=== PATIENT | female | born 1940 | race Caucasian/White ===

== ENCOUNTER → 2019-10-17 15:25 | Outpatient (BNVA) | payer MEDICARE, BC, SELFPAY | PROVIDERS: Family Provider Family Medicine; Visit Provider Obstetrics & Gynecology | DX: R33.9 Retention of urine, unspecified (principal) | CPT/HCPCS: 80053; 81000; 87077; 87086; 87186 ==

== ENCOUNTER 2020-05-29 14:21 | Outpatient (CLI) | payer MEDICARE, BC, SELFPAY ==
--- NOTE | 2020-05-29 14:30 | MM_ITS ---
WS: [id number] BILATERAL SCREENING DIGITAL MAMMOGRAM WITH CAD HISTORY: SCREENING COMPARISON: 03/27/2019 and 03/22/2018 Bilateral CC and MLO views submitted. Computer aided detection analyzed. Breast composition: There are scattered areas of fibroglandular density. No suspicious masses, microc alcifications or architectural distortion. MM/[place] [id number] IMPRESSION: BI-RADS: 1-Negative FOLLOW UP: 1 Year Follow-up
== END 2020-05-29 14:22 | disposition home or self-care (01) ==
LOC: RADSHAW 14:28
PROVIDERS: PCP Family Medicine; Visit Provider Family Medicine
DX: Z12.31 Encounter for screening mammogram for malignant neoplasm of breast (principal)
CPT/HCPCS: 77067

== ENCOUNTER 2020-10-07 14:13 | Outpatient (CLI) | payer MEDICARE, BC, SELFPAY ==
--- NOTE | 2020-10-07 14:29 | XR_ITS ---
WS: [id number] DEXA (DUAL ENERGY X-RAY ABSORPTIOMETRY) Bone mineral density was performed using a [employer] machine. HISTORY: ASYMPTOMATIC MENOPAUSAL STATE COMPARISON: None available. Lumbar spine BMD (L1-L4): 0.985 g/cm2 T score: -1.6 Z score: 0.4 Total hip BMD: Left: 0.682 g/cm2. T score: -2.6 Z score: -0.4 Right: 0.662 g/cm2. T score: -2.7 Z score: -0.6 10 year probability of a major osteoporotic fracture is 68% XR/XR DEXA axial skeleton* [id number] IMPRESSION: OSTEOPOROSIS based upon the WHO classification for females.
== END 2020-10-07 14:14 | disposition home or self-care (01) ==
PROVIDERS: PCP Family Medicine; Visit Provider Family Medicine
DX: Z78.0 Asymptomatic menopausal state (principal); M81.0 Age-related osteoporosis without current pathological fracture
CPT/HCPCS: 77080

== ENCOUNTER 2021-09-02 13:01 | Outpatient (CLI) | payer MEDICARE, BC, SELFPAY ==
--- NOTE | 2021-09-02 13:22 | MM_ITS ---
WS: [id number] BILATERAL 3D TOMOSYNTHESIS DIGITAL SCREENING MAMMOGRAPHY WITH CAD CLINICAL INFORMATION: SCREENING HISTORY: Screening mammogram. No current complaints. COMPARISON: May 29, 2020 TECHNIQUE: Bilateral CC and MLO views. FINDINGS: Scattered fibroglandular densities bilaterally. Vascular calcification. A few incidental punctate landon cifications. No suspicious focal mass, asymmetry, calcifications, or architectural distortion. No gracia dence of malignancy. MM/[place] [id number] IMPRESSION: BI-RADS: 2-Benign FOLLOW UP: 1 Year Follow-up Recommend return to annual screening mammography.
== END 2021-09-02 13:02 | disposition home or self-care (01) ==
PROVIDERS: PCP Family Medicine; Visit Provider Family Medicine
DX: Z12.31 Encounter for screening mammogram for malignant neoplasm of breast (principal)
CPT/HCPCS: 77063; 77067

== ENCOUNTER 2021-10-12 13:48 | Outpatient (CLI) | payer MEDICARE, BC, SELFPAY ==
--- NOTE | 2021-10-12 14:10 | XRR_ITS ---
PROCEDURE INFORMATION: Exam: XR Right Knee Exam date and time: 10/12/2021 2:19 PM Age: 80 years old Clinical indication: Pain; Knee; Right; Additional info: R knee pain TECHNIQUE: Imaging protocol: XR Right knee. Views: 3 views. COMPARISON: No relevant prior studies available. FINDINGS: Bones/joints: Osseous structures are intact. Negative for fracture. Joint spaces are preserved. Soft tissues: Normal. XR/XR knee RT 3V* [id number] IMPRESSION: No acute findings.
== END 2021-10-12 13:49 | disposition home or self-care (01) ==
LOC: RAD 14:00
PROVIDERS: PCP Family Medicine; Visit Provider Family Medicine
DX: M25.561 Pain in right knee (principal)
CPT/HCPCS: 73562

== ENCOUNTER 2021-11-20 11:19 | Emergency (ER) | payer MEDICARE, BC, SELFPAY ==
[2021-11-20 11:32] VITALS: BP 194/76; PULSE 95; RESP 16; TEMP 36.7; O2SAT 96
--- NOTE | 2021-11-20 11:52 | XRR_ITS ---
PROCEDURE INFORMATION: Exam: XR Left Foot Exam date and time: 11/20/2021 12:26 PM Age: 81 years old Clinical indication: Injury or trauma; Other: Drop makeup case on foot; Blunt trauma; Left; Additional info: Swelling/bruising from blunt trauma TECHNIQUE: Imaging protocol: Radiologic exam of the Left foot. Views: 3 or more views. COMPARISON: No relevant prior studies available. FINDINGS: Bones/joints: Calcified heel spur. Middle cuneiform bone subtle cortical irregularity seen along the medial aspect, CT could further evaluate this for possible fracture. Soft tissues: Soft tissue swelling about the foot. Vasculature: Scattered vascular calcifications. XR/XR foot LT min 3V* [id number] IMPRESSION: 1. Middle cuneiform bone subtle cortical irregularity seen along the medial aspect, CT could further evaluate this for possible fracture. 2. Calcified heel spur. 3. Scattered vascular calcifications. 4. Soft tissue swelling about the foot.
--- NOTE | 2021-11-20 12:08 | ED_ITS ---
HPI - Extremity Problem General: Chief complaint: Extremity Injury, Lower Stated complaint: left foot injury Time Seen by Provider: 11/20/21 12:08 History of Present Illness: Ms. Patiño is a 81-year-old lady on aspirin and presents to the emergency department due to foot injury. She reports being at baseline health the past few days and a small mascara bottle fell out of her hand landing on the top of her left foot. She did not have significant pain however subsequently noticed increased pain with ambulation and fairly significant swelling on the top of her foot. Denies other injuries. Intensity symptoms is moderate. Course has persisted. No other specific changes in healt h, exacerbating, or alleviating factors identified. Onset (ago): hour(s) Pain Consistency: constant Location: left and lower extremity Quality: aching Review of Systems General: Reports: 10 or more systems reviewed and unremarkable except in HPI and below PFSH ED PFSH: Medical History Hyperlipidemia Hypertension No pertinent past medical history neghx: dm,thyroid,dvt/pe PCP: Jonna Ardon Osteoporosis Surgical History H/O eye surgery (~12/2020) cataracts surgery- bilateral eyes History of section, low transverse (~12/26/1958) in [facility] Family History Mother Breast cancer diagnosed at age 66 Sister Hypertension Stroke Thyroid disease Denies family history of Colon cancer Ovarian cancer Diabetes Heart disease Hypercholesteremia Uterine cancer Physical Exam Const: COMMON NORMALS: alert GENERAL APPEARANCE: cooperative and well devel oped HENMT: COMMON NORMALS: normocephalic and atraumatic HEAD & SCALP: normocephalic and atraumatic THROAT: posterior oropharynx normal Eye: COMMON NORMALS: conjunctivae normal CONJUNCTIVA: Yes conjunctivae norm al SCLERA: sclerae normal Neck/C-Spine: COMMON NORMALS: supple GENERAL: Yes trachea midline Resp: COMMON NORMALS: normal respiratory effort EFFORT & INSPECTION: Yes able to speak in complete sentences Cardio: COMMON NORMALS: regular rate and regular rhythm RATE: regular rate RHYTHM: regular rhythm GI: COMMON NORMALS: Soft to palpation PALPATION: Yes Soft to palpation and No Tenderness to palpation present (GI) PERCUSSION: normal to percussion Extremity: NARRATIVE EXTREMITY EXAM: Injury isolated to top of left foot where there is a large hematoma without laceration. CMS intact. GENERAL: Yes normal exam except as noted and No edema Neuro: COMMON NORMALS: moves all extremities SENSORIUM/ORIENTATION: Yes alert and No Orientation impaired Psych: COMMON NORMALS: mental status grossly normal and Normal thought process present THOUGHT PROCESS: Normal thought process present Skin: NARRATIVE SKIN EXAM: 2 regions of fairly prominent erythema. No vesicular lesions. Mild erosion at the center of a right proximal forearm posterior lesion approximately 4 cm x 4 cm roughly round with a 1 cm round area of central violaceous appearing. No ulceration noted. Another more irregular region in the mid chest once again without vesicles or other clear defined rash. Course Vital Signs: Vital signs: Vital Signs Temperature 98.1 F 11/20/21 11:32 Pulse Rate 95 11/20/21 11:32 Respiratory Rate 16 11/20/21 11:32 Blood Pressure 194/76 11/20/21 11:32 Pulse Oximetry 96 11/20/21 11:32 Oxygen Delivery Me thod 11/20/21 11:32 MDM - Extremity (Nontraumatic) Medical Decision Making 81-year-old lady on aspirin presenting with concern over foot injury after dropping a small bottle on foot. Fairly large hematoma noted on the top of foot. X-rays indeterminate with CT recommended. CT negative for acute fracture. Satisfactory for outpatient management. Medical Records I reviewed the patient's medical records. Lab Data I reviewed the patient's lab results. Radiology Impressions Foot X-Ray 11/20/21 11:52 IMPRESSION: 1. Middle cuneiform bone subtle cortical irregularity seen along the medial aspect, CT could further evaluate this for possible fracture. 2. Calcified heel spur. 3. Scattered vascular calcifications. 4. Soft tissue swelling about the foot. Foot CT 11/20/21 13:11 IMPRESSION: 1. Negative for fracture or dislocation. 2. Calcified heel spur. 3. Distal Achilles tendon degenerative calcification. 4. Soft tissue swelling about the foot, nonspecific. Discharge Plan Discharge Patient Disposition: Home Clinical Impression: Foot injury, Hematoma Condition: Stable Prescriptions: No Action atorvastatin 10 mg tablet 5 mg PO DAILY Zyrtec 10 mg capsule PO DAILY PRN triamterene-hydrochlorothiazid 37.5-25 mg tablet 0.5 tab PO DAILY potassium chloride 10 mEq capsule, extended release 10 meq PO DAILY aspirin [Adult Low Dose Aspirin] 81 mg tablet,delayed release (DR/EC) 81 mg PO .COMPLEX Rx Instructions: 81 mg PO every other day; (DME) Ring pessary with support 3 inch See Rx Instructions .Route .MEDSUPPLY Qty: 1 0RF Rx Instructions: As directed alendronate 70 mg tablet PO .weekly Premarin 0.625 mg/gram cream 0.625 mg VAGINAL .COMPLEX Qty: 30 3RF Rx Instructions: 0.625 mg vaginal 1/2 gram vaginally twice a week at bedtime; Discharge Orders: Discharge ED (Routine); Ordered 11/20/21 Ordered By: Mikael Philippe Referrals: Jonna Ardon MD [Primary Care Provider] - Discharge Diet: Usual diet Discharge Activity: Limit activity as instructed Patient Instructions: Hematoma (ED), Crush Injury (ED) Activity Restrictions/Additional Instructions: Thank you for visiting the emergency department. You were seen and evaluated for foot injury. No bony injury was identified. The most likely cause of your symptoms is rupture of blood vessel resulting in hematoma. Ice with a 2:1 ratio of often on time, NSAIDs, Tylenol, and elevation as well as gentle compression should help resolve this. Please return to the emergency department for uncontrolled pain, new numbness or weakness, color change in your toes, or anything that you are concerned about and feel needs emergency department evaluation. Coding Level of Care Code ED [employer] Pv for Lissette Fwfredy Exam Comprehensive
--- NOTE | 2021-11-20 13:11 | CTR_ITS ---
PROCEDURE INFORMATION: Exam: CT Left Lower Extremity Without Contrast, Foot Exam date and time: 11/20/2021 1:37 PM Age: 81 years old Clinical indication: Pain; Foot; Left; Additional info: Object dropped on foot, hematoma, ? xray fracture TECHNIQUE: Imaging protocol: CT of the Left lower extremity without contrast was performed. Exam focused on the foot. Radiation optimization: All CT scans at this facility use at least one of these dose optimization techniques: automated exposure control; mA and/or kV adjustment per patient size (includes targeted exams where dose is matched to clinical indication); or iterative reconstruction. COMPARISON: CR (LOW EXM, ) 11/20/2021 12:26 PM RADIATION DOSE METRICS: Total DLP (mGy-cm): 133.71 FINDINGS: Bones/joints: Calcified heel spur. Soft tissues: Distal Achilles tendon degenerative calcification. Soft tissue swelling about the foot, nonspecific. CT/CT foot LT wo con* [id number] IMPRESSION: 1. Negative for fracture or dislocation. 2. Calcified heel spur. 3. Distal Achilles tendon degenerative calcification. 4. Soft tissue swelling about the foot, nonspecific.
== END 2021-11-20 15:37 | disposition home or self-care (01) ==
PROVIDERS: Emergency Provider Emergency Medicine; PCP Family Medicine
DX: S90.32XA Contusion of left foot, initial encounter (principal); W20.8XXA Other cause of strike by thrown, projected or falling object, initial encounter; E78.5 Hyperlipidemia, unspecified; I10 Essential (primary) hypertension; Z79.82 Long term (current) use of aspirin
CPT/HCPCS: 73630; 73700; 99284

== ENCOUNTER 2021-12-14 07:57 | Outpatient (CLI) | payer MEDICARE, BC, SELFPAY ==
--- NOTE | 2021-12-14 08:08 | USCV_ITS ---
Ángela Patiño Age: 81 Gender: F : 1940 Exam Date: 12/14/2021 08:37 Ordering Phys: Lidia Douglas TETRYL SCREEN OPERATOR Technologist: Dominic Duarte Exam Location: [facility] – [place]_ Indication: contusion of left foot PROCEDURES: Venous duplex imaging was performed in only the left lower extremity. The following venous structures were evaluated: common femoral vein, profunda vein, proximal portion of the greater saphenous vein, superficial femoral vein, and the popliteal vein. In addition, the posterior tibial and peroneal trunk were evaluated. Serial compression, augmentation maneuvers, and spectral Doppler flow evaluation were performed. FINDINGS: Normal 2-D Doppler and augmentation and compressibility throughout the lower extremity venous structures. Additional imaging through the proximal calf veins also reveals no thrombus. Limited evaluation of the greater saphenous vein is patent with no thrombus. CONCLUSIONS No DVT bilateral lower extremities. Dr. Yadira Zaldivar DO (Electronically Signed) Final Date: 14 December 2021 09:53 S
--- NOTE | 2021-12-14 08:08 | US_ITS ---
WS: [id number] ULTRASOUND SOFT TISSUES LEFT foot. HISTORY: CONTUSION OF LEFT FOOT/HEMATOMA COMPARISON: None available. TECHNIQUE: 2-D and color Doppler imaging is submitted. Ultrasound directed over the dorsal surface of the LEFT foot. There is a large complex mass which is predominantly hypoechoic with a few areas of increased echogenicity. This mass extends over length of 5.0 cm and transversely by 3.3 cm. The depth is 0.7 cm. No increased vascularity. US/US soft tissue/extremity [id number] IMPRESSION: Complex mixed echogenicity mass in the soft tissues over the dorsal surface of the foot most consistent with a subacute hematoma.
== END 2021-12-14 07:58 | disposition home or self-care (01) ==
LOC: RAD 07:58
PROVIDERS: PCP Family Medicine; Visit Provider Nurse Practitioner Family
DX: S90.32XA Contusion of left foot, initial encounter (principal); M79.89 Other specified soft tissue disorders; X58.XXXA Exposure to other specified factors, initial encounter; R21 Rash and other nonspecific skin eruption; R33.9 Retention of urine, unspecified
CPT/HCPCS: 76882; 80053; 85025; 85651; 86140; 86160; 86162; 86235; 86255; 86376; 93971

== ENCOUNTER → 2022-03-07 09:54 | Outpatient (BNVA) | payer MEDICARE, BC, SELFPAY | PROVIDERS: PCP Family Medicine; Visit Provider Internal Medicine Rheumatology | DX: R76.8 Other specified abnormal immunological findings in serum (principal); R60.0 Localized edema; Z83.49 Family history of other endocrine, nutritional and metabolic diseases | CPT/HCPCS: 99203; 99204 ==

== ENCOUNTER 2022-09-08 09:57 | Outpatient (CLI) | payer MEDICARE, SELFPAY ==
--- NOTE | 2022-09-08 10:06 | MM_ITS ---
WS: [id number] Bilateral screening 3D tomosynthesis digital mammogram, 09/08/2022 Clinical Data: Z12.39 - Encounter for other screening for malignant neop... Comparison: 09/02/2021, 05/29/2020, 03/27/2019, 03/22/2018, 02/27/2017, 02/18/2016, 11/03/2014, 4, 10/17/2012, 09/15/2010, 09/08/2009, 05/06/2008, 04/24/2007, 04/20/2006. Findings: The breast parenchymal pattern shows heterogeneous density. No spiculated masses or clustered calcifi cations are seen. There are no secondary signs of carcinoma. There are mole markers on both breasts. There are small vessel calcifications bilaterally. MM/[place] [id number] Impression: 1. Negative bilateral mammogram unchanged. 2. Recommend annual screening mammograms. BIRADS: 1-Negative FOLLOW UP: 1 Year Follow-up The CAD title checker was used.
== END 2022-09-08 09:58 | disposition home or self-care (01) ==
LOC: RAD 10:00
PROVIDERS: PCP Family Medicine; Visit Provider Nurse Practitioner Women's Health
DX: Z12.31 Encounter for screening mammogram for malignant neoplasm of breast (principal)
CPT/HCPCS: 77063; 77067

== ENCOUNTER → 2022-09-12 08:48 | Outpatient (BNVA) | payer MEDICARE, SELFPAY | PROVIDERS: PCP Family Medicine; Visit Provider Dermatology | DX: L30.0 Nummular dermatitis (principal); L82.1 Other seborrheic keratosis; L81.9 Disorder of pigmentation, unspecified; L81.0 Postinflammatory hyperpigmentation; L57.8 Other skin changes due to chronic exposure to nonionizing radiation | CPT/HCPCS: 99213 ==

== ENCOUNTER 2022-11-30 13:00 | Outpatient (CLI) | payer MEDICARE, SELFPAY ==
--- NOTE | 2022-11-30 13:07 | XR_ITS ---
WS: [id number] SCREENING DEXA SCAN JRD Communication CLINICAL INFORMATION: Osteoporosis, Postmenopausal COMPARISON: 2020 FINDINGS: The L1-L4 bone mineral density measures 1.014 g/cm2. This corresponds to a T score score of -1.4 and Z score of 0.6. Left femoral neck bone mineral density measures 0.681 g/cm2. This corresponds to a T score of -2.6 an d Z score of -0.3. Right femoral neck bone mineral density measures 0.648 g/cm2. This corresponds to a T score -2.9of an d Z score of -0.6. Mean femoral neck bone mineral density measures 0.664 g/cm2. This corresponds to a T score of -2.7 an d Z score of -0.5. XR/XR DEXA axial skeleton* [id number] IMPRESSION: Osteopenia lumbar spine. Osteoporosis femoral necks. Patient's FRAX calculated 10 year probability for major osteoporotic fracture i s 68.3 % and osteoporotic hip fracture is 60.9%.
== END 2022-11-30 13:01 | disposition home or self-care (01) ==
PROVIDERS: PCP Family Medicine; Visit Provider Family Medicine
DX: M81.0 Age-related osteoporosis without current pathological fracture (principal); Z78.0 Asymptomatic menopausal state
CPT/HCPCS: 77080

== ENCOUNTER 2022-12-22 08:46 | Oncology outpatient (recurring) (ONCR) | payer MEDICARE, SELFPAY ==
[2022-12-22] MEDS: denosumab 60 mg SDV SUBCUT (09:24)
[2022-12-22 09:37] VITALS: BP 160/103; PULSE 85; TEMP 36.6; O2SAT 99
== END 2023-01-05 23:59 | disposition home or self-care (01) ==
PROVIDERS: PCP Family Medicine; Visit Provider Family Medicine
DX: M81.0 Age-related osteoporosis without current pathological fracture (principal)
CPT/HCPCS: 96372; J0897

== ENCOUNTER 2023-07-28 08:51 | Oncology outpatient (recurring) (ONCR) | payer MEDICARE, SELFPAY ==
[2023-07-28 09:24] VITALS: BP 183/93; PULSE 89; RESP 16; TEMP 36.6; O2SAT 96
[2023-07-28] MEDS: denosumab 60 mg SDV SUBCUT (09:26)
[2023-07-28 09:59] LABS: Calcium 8.7 mg/dL (8.5-10.5)
== END 2023-08-06 23:59 | disposition home or self-care (01) ==
LOC: ONCMED 08:51
PROVIDERS: PCP Family Medicine; Visit Provider Family Medicine
DX: M81.0 Age-related osteoporosis without current pathological fracture (principal)
CPT/HCPCS: 36415; 82310; 96372; J0897

== ENCOUNTER 2023-09-11 10:32 | Outpatient (CLI) | payer MEDICARE, SELFPAY ==
--- NOTE | 2023-09-11 11:00 | MM_ITS ---
WS: [id number] BILATERAL SCREENING DIGITAL TOMOSYNTHESIS MAMMOGRAM WITH CAD HISTORY: Z12.31 - Encounter for screening mammogram for malignant ... COMPARISON: 09/08/2022, 09/02/2021, 05/29/2020 Bilateral CC and MLO views with tomosynthesis and synthetic mammography submitted. Computer aided det ection analyzed. Breast composition: There are scattered areas of fibroglandular density. No suspicious masses, microc alcifications or architectural distortion. Extensive arterial calcifications. MM/[place] [id number] IMPRESSION: BI-RADS: 2-Benign FOLLOW UP: 1 Year Follow-up
== END 2023-09-11 10:33 | disposition home or self-care (01) ==
PROVIDERS: PCP Family Medicine; Visit Provider Nurse Practitioner Women's Health
DX: Z12.31 Encounter for screening mammogram for malignant neoplasm of breast (principal)
CPT/HCPCS: 77063; 77067

== ENCOUNTER → 2023-12-14 10:52 | Outpatient (BNVA) | payer MEDICARE, SELFPAY | PROVIDERS: PCP Family Medicine; Visit Provider Podiatrist Foot & Ankle Surgery | DX: M79.672 Pain in left foot (principal); L60.3 Nail dystrophy | CPT/HCPCS: 99203 ==

== ENCOUNTER 2024-01-02 10:54 | Outpatient (CLI) | payer MEDICARE, SELFPAY ==
--- NOTE | 2024-01-02 11:02 | XR_ITS ---
WS: [id number] Exam: XR tibia fibula LT 2V [id number] Date/Time of Exam: 01/02/2024 11:09 AM Reason For Exam: CONTUSION OF LEFT LOWER LEG No fracture or dislocation. Articular relationships at the knee and ankle appear to be intact. Normal soft tissues. XR/XR tibia fibula LT 2V [id number] IMPRESSION: 1. Unremarkable LEFT tibia and fibula.
--- NOTE | 2024-01-02 11:13 | XR_ITS ---
WS: [id number] Exam: XR knee LT 3V* [id number] Date/Time of Exam: 01/02/2024 11:14 AM Reason For Exam: Pain in left knee No fracture or dislocation. The joint compartments are relatively well-maintained. No joint effusion seen. Normal soft tissues. XR/XR knee LT 3V* [id number] IMPRESSION: 1. Negative LEFT knee.
--- NOTE | 2024-01-02 11:14 | XR_ITS ---
WS: [id number] Exam: XR hip LT 2-3V wo/w pel* [id number] Date/Time of Exam: 01/02/2024 11:14 AM Reason For Exam: Pain in the left hip Exam: XR hip LT 2-3V wo/w pel* [id number] Date/Time of Exam: 01/02/2024 11:14 AM Reason For Exam: Pain in the left hip No fracture or dislocation. Moderate degenerative narrowing of the joint compartment. Soft tissues ar e unremarkable. XR/XR hip LT 2-3V wo/w pel* [id number] IMPRESSION: 1. Moderate degenerative change. No fracture or other significant finding.
== END 2024-01-02 10:55 | disposition home or self-care (01) ==
LOC: RAD 10:57
PROVIDERS: PCP Family Medicine; Visit Provider Family Medicine
DX: S80.12XA Contusion of left lower leg, initial encounter (principal); M16.12 Unilateral primary osteoarthritis, left hip
CPT/HCPCS: 73502; 73562; 73590

== ENCOUNTER 2024-02-19 13:51 | Oncology outpatient (recurring) (ONCR) | payer MEDICARE, SELFPAY ==
[2024-02-19] MEDS: denosumab 60 mg SDV SUBCUT (14:39)
== END 2024-03-07 23:59 | disposition home or self-care (01) ==
PROVIDERS: PCP Family Medicine; Visit Provider Family Medicine
DX: M81.0 Age-related osteoporosis without current pathological fracture (principal); Z79.899 Other long term (current) drug therapy
CPT/HCPCS: 96372; J0897

== ENCOUNTER 2024-08-19 13:20 | Oncology outpatient (recurring) (ONCR) | payer MEDICARE, SELFPAY ==
[2024-08-19] MEDS: denosumab 60 mg SDV SUBCUT (14:39)
== END 2024-09-04 23:59 | disposition home or self-care (01) ==
LOC: ONCMED 13:21
PROVIDERS: PCP Family Medicine; Visit Provider Family Medicine
DX: M81.0 Age-related osteoporosis without current pathological fracture (principal); Z79.899 Other long term (current) drug therapy
CPT/HCPCS: 96372; J0897

== ENCOUNTER 2024-10-01 10:45 | Outpatient (CLI) | payer MEDICARE, SELFPAY ==
--- NOTE | 2024-10-01 10:50 | MM_ITS ---
WS: [id number] BILATERAL 3D TOMOSYNTHESIS DIGITAL SCREENING MAMMOGRAPHY WITH CAD CLINICAL INFORMATION: SCREENING HISTORY: Screening mammogram. No current complaints. COMPARISON: 2023 TECHNIQUE: Bilateral CC and MLO views. FINDINGS: Scattered fibroglandular densities bilaterally. No suspicious focal mass, asymmetry, calcifications, or architectural distortion. No evidence of malignancy. Vascular calcification. MM/MM scr tomosynthesis [id number] IMPRESSION: DENSITY: There are scattered areas of fibroglandular density. BI-RADS: 2 - Benign. FOLLOW UP: 1 Year Follow-up Recommend return to annual screening mammography.
== END 2024-10-01 10:46 | disposition home or self-care (01) ==
LOC: RAD 10:46
PROVIDERS: PCP Family Medicine; Visit Provider Family Medicine
DX: Z12.31 Encounter for screening mammogram for malignant neoplasm of breast (principal); R92.323 Mammographic fibroglandular density, bilateral breasts; R92.1 Mammographic calcification found on diagnostic imaging of breast
CPT/HCPCS: 77063; 77067

== ENCOUNTER 2025-02-18 11:46 | Oncology outpatient (recurring) (ONCR) | payer MEDICARE, SELFPAY ==
[2025-02-18] MEDS: denosumab 60 mg SDV (Infusion Clinic Only) SUBCUT (12:09)
[2025-02-18 12:13] VITALS: BP 112/64; PULSE 64; RESP 16; TEMP 36.6
== END 2025-03-07 23:59 | disposition home or self-care (01) ==
PROVIDERS: PCP Family Medicine; Visit Provider Family Medicine
DX: M81.0 Age-related osteoporosis without current pathological fracture (principal); Z79.899 Other long term (current) drug therapy
CPT/HCPCS: 96372; J0897